=== PATIENT | female | born 1955 | race Caucasian/White ===

== ENCOUNTER 2022-06-21 13:26 | Emergency (ER) | payer MEDICARE, MEDICAID ==
[~2022-06-21] VITALS: Ht 172.7 cm; Wt 61.0 kg
[2022-06-21 13:35] VITALS: BP 123/80
[2022-06-21] MEDS ORDERED: CLOT30CR39 TOP (15:31)
[2022-06-21] MEDS ORDERED: CEPH-585 PO (15:31)
[2022-06-21] MEDS ORDERED: DOXY100C76 PO (15:53)
--- NOTE | 2022-06-21 15:57 | NUR ---
[facility] CALLED IN REGARDS TO CANCELLING KEFLEX PRESCRIPTION DUE TO PT BEING ALLERGIC. PRESCRIPTION CANCELLED.
== END 2022-06-21 15:58 | disposition home or self-care (01) ==
LOC: ER 13:27
DX: L03.032 Cellulitis of left toe (principal); L53.8 Other specified erythematous conditions; M79.672 Pain in left foot; B35.3 Tinea pedis; Z88.0 Allergy status to penicillin; Z88.1 Allergy status to other antibiotic agents; Z88.8 Allergy status to other drugs, medicaments and biological substances; Z79.899 Other long term (current) drug therapy
CPT/HCPCS: 73610; 73630; 99284; L1930; L4360